=== PATIENT | male | born 1960 | race Caucasian/White ===

== ENCOUNTER → 2016-05-20 | Outpatient (CLI) | payer OTHER ==
[~2016-05-20] MED LIST: GLUCOSAMINE SU500 M2 PO; HEARTBURN TREAT15 MG PO; IBUPROFEN IB200 M1 PO; IBUPROFEN600 MG PO; KEFLEX500 M1 PO; KEFLEX500 MG PO; LISINOPRIL2.5 MG PO; LISINOPRIL20 MG PO; LOMOTIL 0.025 M1 TA1 PO; LUTEIN20 M2 PO; MOTRIN800 MG PO; NKHM; SEPTRA DS 800 M1 TAB PO; XARELTO STARTER20 MG PO; XARELTO20 M1 PO; ZANTAC 150150 MG PO
== END | disposition home or self-care (01) ==
LOC: NM 10:49
DX: D61.818 Other pancytopenia (principal)

== ENCOUNTER → 2016-05-22 | Day surgery (SDC) | payer OTHER ==
--- NOTE | ~2016-05-22 | PROC NOTE ---
[place], [place] PROCEDURE NOTE NAME: CARINA CHRISTIANSON UNIT #: [id number] ROOM: DOCTOR: KIRTI LONDON MD,TRACEY BIRTHDATE: [birth year] DOS: 05/22/2016 Bone marrow aspiration is being done for evaluation of thrombocytopenia and possible hypersplenism. The patient placed in the lateral position. Skin is cleaned with Betadine alcohol. Novocain is injected into the skin until the periosteum, bone marrow aspiration was obtained. Specimen sent to the skilled laborer. AMINATA COTTO MD CM:PROCNOTE:PROCEDURE NOTE [id number] TRACEY LONDON MD
[2016-05-22 07:53] VITALS: BP 159/78
[2016-05-22 09:05] VITALS: BP 129/71
[2016-05-22 09:21] LABS: HEMATOCRIT 39.2 % (42.0-52.0); HEMOGLOBIN 12.1 g/dl (14.0-18.0); MEAN CELL VOLUME 93.8 fl (80.0-94.0); MEAN CORPUSCULAR HGB 28.9 pg (27.0-31.0); MEAN CORPUSCULAR HGB CONC 30.9 g/dl (33.0-37.0); MEAN PLATELET VOLUME 11.7 fl (9.6-12.3); PLATELET COUNT AUTOMATED 76 10*3/uL (130-400); RED BLOOD COUNT 4.18 10*6/uL (4.50-5.90); RED CELL DISTRI WIDTH 13.1 % (0-14.5); WHITE BLOOD COUNT 3.2 10*3/uL (4.8-10.8)
[2016-05-22 10:49] LABS: EOSINOPHIL # 0.2 10*3/uL (0-0.4); EOSINOPHILS 6 % (1-4); LYMPHOCYTE # 1.3 10*3/uL (1.3-4.4); MONOCYTE # 0.3 10*3/uL (0.1-1.0); NEUTROPHIL # 1.4 10*3/uL (2.3-7.9); NEUTROPHILS 44 % (47-73); TOTAL CELLS COUNTED 100 #CELLS
[2016-05-22 10:50] LABS: OVALOCYTES FEW; PLATELET SUFFICIENCY LOW (NORMAL); ROULEAUX SLIGHT
[2016-05-28 19:04] LABS: CELLS ANALYZED 20 (.); CELLS COUNTED 20 (.); CELLS KARYOTYPED 2 (.); CYTOGENETIC RESULT Comment: (.); GTG BAND RESOLUTION ACHIEVED 400 (.); INTERPRETATION Comment: (.)
== END | disposition home or self-care (01) ==
LOC: SDC 07:04
PROVIDERS: Internal Medicine
DX: D61.818 Other pancytopenia (principal); I10 Essential (primary) hypertension; Z83.3 Family history of diabetes mellitus; Z82.3 Family history of stroke; Z82.49 Family history of ischemic heart disease and other diseases of the circulatory system; Z87.891 Personal history of nicotine dependence

== ENCOUNTER → 2016-10-02 | Outpatient (CLI) | payer OTHER ==
[2016-10-02 10:30] LABS: BASO % 0.8 % (0.0-1.0); EOS # 0.2 10*3/uL (0.0-0.4); EOS % 6.5 % (1.0-4.0); HEMATOCRIT 40.7 % (42.0-52.0); HEMOGLOBIN 12.9 g/dl (14.0-18.0); LYMPH # 1.3 10*3/uL (1.3-4.4); LYMPH % 34.9 % (27.0-41.0); MEAN CELL VOLUME 92.1 fl (80.0-94.0); MEAN CORPUSCULAR HGB 29.2 pg (27.0-31.0); MEAN CORPUSCULAR HGB CONC 31.7 g/dl (33.0-37.0); MEAN PLATELET VOLUME 11.6 fl (9.6-12.3); MONO # 0.3 10*3/uL (0.1-1.0); MONO % 7.1 % (3.0-9.0); NEUT # 1.9 10*3/uL (2.3-7.9); NEUT % 50.4 % (47.0-73.0); PLATELET COUNT AUTOMATED 90 10*3/uL (130-400); RED BLOOD COUNT 4.42 10*6/uL (4.50-5.90); RED CELL DISTRI WIDTH 13.2 % (0-14.5); WHITE BLOOD COUNT 3.7 10*3/uL (4.8-10.8)
[2016-10-02 10:58] LABS: ALBUMIN 3.6 gm/dl (3.1-4.5); ALKALINE PHOSPHATASE 96 U/L (45-117); BILIRUBIN, TOTAL 0.8 mg/dl (0.2-1.0); BUN 12 mg/dl (7-24); CARBON DIOXIDE 29 mmol/L (21-32); CHLORIDE 111 mmol/L (98-107); CHOLESTEROL 129 mg/dL (<200); EST GLOM FILT AFRICAN AMERICAN > 60 ml/min; GLUCOSE 104 mg/dL (65-99); HDL CHOLESTEROL 46 mg/dl (40-60); LDL CHOLESTEROL 61 mg/dL (9-159); POTASSIUM 4.2 mmol/L (3.5-5.1); SGOT/AST 43 IU/L (3-35); SGPT/ALT 82 U/L (12-78); SODIUM 146 mmol/L (136-145); TOTAL PROTEIN 7.2 gm/dL (6.4-8.2); TRIGLYCERIDES 108 mg/dl (<150); VLDL CHOLESTEROL 22 mg/dL (6-40)
== END | disposition home or self-care (01) ==
LOC: LAB 09:49
PROVIDERS: Family Medicine
DX: I10 Essential (primary) hypertension (principal)

== ENCOUNTER → 2017-06-19 | Outpatient (CLI) | payer OTHER | END | disposition home or self-care (01) | LOC: CARD 13:48 | DX: R00.2 Palpitations (principal); R06.02 Shortness of breath; R09.89 Other specified symptoms and signs involving the circulatory and respiratory systems ==

== ENCOUNTER 2017-08-18 22:49 | Inpatient (IN) | payer OTHER ==
[~2017-08-18] VITALS: Ht 187.9 cm; Wt 134.5 kg
--- NOTE | ~2017-08-18 | CON ---
[place], [place] REPORT OF CONSULTATION NAME: [facility]SON [facility] [id number] UNIT #: [id number] ROOM: 520 DOCTOR: AZRA LOVE MD BIRTHDATE: [birth year] DOS: 08/19/2017 REASON FOR CONSULTATION: Chest pain. HISTORY OF PRESENT ILLNESS: The patient is a 57-year-old man who has risk factors of hypertension, prediabetes, obesity and a family history of coronary artery disease. He has no previously documented history of coronary disease and in fact did have a stress test on 07/12/2015 that showed normal left ventricular size and perfusion with an ejection fraction of 75%. The study was felt to be low risk. He was well until about a week ago. He broke up with his girlfriend and stated that shortly after that he began having sharp pains in his lower chest, which radiated to his right side and right back. These were associated with feeling hot and sweaty. Pains would last variable amounts of time. Yesterday pains got worse and so he came to the Emergency Room. His initial electrocardiogram showed minimal inferior ST segment depressions and troponin levels have been normal. We were asked to assess the cause of his chest pain. Currently, the patient is pain free and believes that he can walk for an exercise stress test. PAST MEDICAL HISTORY: Includes the followin. Essential hypertension. 2. Morbid obesity. 3. Prediabetes. 4. Stasis dermatitis of the legs. 5. 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 6. Family history of heart disease in several male members of his family. His father at age 59 from a heart attack. MEDICATIONS: Prior to admission, ibuprofen 600 mg daily p.r.n., Fioricet 1 capsule b.i.d. p.r.n. migraines, lisinopril 20 mg daily, lansoprazole 15 mg daily and Lutein 20 mg daily. ALLERGIES: The patient has no known drug allergies. FAMILY HISTORY: Positive for multiple family members having heart disease. REVIEW OF SYSTEMS: The patient denies diplopia or loss of vision. He denies focal weakness. He denies lightheadedness or syncope. He did have the chest pain as noted above. He denies nausea or vomiting. He denies hemoptysis or hematemesis. He denies fevers, chills, sweats or recent weight change. He does have chronic stasis changes on his legs, but no other skin rashes. He denies any change in bowel or bladder habits. He denies blood in his stools or urine. He denies heat or cold intolerance and denies polyuria or polydipsia. The remainder of the review of systems is negative except as noted above. SOCIAL HISTORY: The patient does not smoke or consume alcohol. He recently [place], [place] REPORT OF CONSULTATION NAME: CARINA CHRISTIANSON UNIT #: [id number] ROOM: [facility] DOCTOR: AZRA LOVE MD BIRTHDATE: [birth year] broke up with a woman that he had been seeing and feels very upset about that. PHYSICAL EXAMINATION: GENERAL: The patient is an overweight white male who is awake, alert and oriented. VITAL SIGNS: Pulse is 64 and regular, blood pressure is 128/62. He is afebrile. He weighs 134.5 kg and has a body mass index of 38.1. HEENT: Normocephalic and atraumatic. Extraocular muscles are intact. Sclerae are clear. Pupils equal, round and react to light. The oral mucosa is moist. Tongue is midline. NECK: Supple. He has no jugular distention. Carotids are full. I heard no bruits. He had no neck or supraclavicular masses. No thyromegaly. LUNGS: Respirations are unlabored. His chest is clear to auscultation and percussion. He has no presacral edema or chest wall tenderness. CARDIOVASCULAR: His heart has a regular rhythm. He has no murmurs, rubs or gallops. I could reproduce some of his pains by pressing on his lower sternum. The PMI is not displaced. There is no precordial heave, lift or thrill. ABDOMEN: Obese, but otherwise benign, without masses, organomegaly, bruits or tenderness. EXTREMITIES: Show stasis changes of the shins bilaterally. Pedal pulses are palpable in the feet. LABORATORY DATA: I reviewed his electrocardiogram, which shows sinus rhythm with minimal ST segment depression in the inferior leads. Serial troponin levels are normal. Hemoglobin is 12.3 with hematocrit 38.5. There 5500 white cells and 84,000 platelets present. Sodium is 142, potassium 3.5, chloride 109, CO2 of 26, BUN 14, creatinine 1.16. Hemoglobin A1c 5.6. Total cholesterol 109, LDL 58, HDL 35, triglycerides 82. IMPRESSION: 1. Atypical chest pain. Thus far, the patient shows no objective findings to suggest an acute coronary syndrome. 2. Morbid obesity. 3. Probable metabolic syndrome. 4. History of prediabetes. 5. Essential hypertension. 6. Thrombocytopenia. PLAN: We will proceed with an exercise stress test. Further recommendations depend upon the results of the stress test. Certainly, he should try to lose weight and maintain a healthy lifestyle no matter what we find given his other risk factors. [facility] and I thank the hospitalist physicians for asking our advice regarding the patient's care. [place], [place] REPORT OF CONSULTATION NAME: CARINA CHRISTIANSON UNIT #: [id number] ROOM: [facility] DOCTOR: AZRA LOVE MD BIRTHDATE: [birth year] AZRA LOVE MD CM:CONSTR:REPORT OF CONSULTATION 0941 08/19/17 1000 interface
--- NOTE | ~2017-08-18 | PR ---
[place], [place] PROGRESS NOTE NAME: CARINA CHRISTIANSON [facility] #: [id number] UNIT #: [id number] ROOM: 520 DOCTOR: AZRA LOVE MD BIRTHDATE: [birth year] DOS: 08/20/2017 SUBJECTIVE: The patient was seen at his bedside today 08/20/2017 for followup of his atypical chest pain. This seemed to be brought on by stress over a recent breakup with his girlfriend. He ruled out for an acute myocardial infarction and a stress test yesterday was normal. PHYSICAL EXAMINATION: VITAL SIGNS: Today, his pulse is 66 and regular, blood pressure 130/72. He is afebrile. He weighs 134.5 kg and has a body mass index of 38.1. HEENT: Normocephalic and atraumatic. NECK: Supple. He has no jugular distention. LUNGS: Respirations are unlabored. His chest is clear. HEART: Has a regular rhythm. He has a fourth heart sound, but no third heart sound. He does have chronic stasis changes on his ankles. IMPRESSION: 1. Atypical chest pain. The patient showed no objective findings to suggest acute coronary syndrome or ischemic heart disease. 2. Morbid obesity. 3. Metabolic syndrome. 4. Prediabetes. 5. Essential hypertension. 6. Thrombocytopenia. No other cardiac workup is planned at this time. He should make healthy lifestyle choices and probably should be on a statin if he can tolerate it from his other medical problems. We will remain available to see him as needed and I thank the hospitalist physicians for asking our advice regarding his care. AZRA LOVE MD CM:PNTRANS [id number] AZRA LOVE MD 08/20/17 1546 interface
[2017-08-18 22:53] VITALS: BP 117/63
[2017-08-18] MEDS ORDERED: LANSOPRAZOLE15 MG PO (22:56)
[2017-08-18] MEDS ORDERED: FIORICET 50-301 EACH PO (22:57)
[2017-08-18 23:33] LABS: BASO % 0.5 % (0.0-1.0); EOS # 0.2 10*3/uL (0.0-0.4); EOS % 2.3 % (1.0-4.0); HEMATOCRIT 42.7 % (42.0-52.0); HEMOGLOBIN 13.8 g/dl (14.0-18.0); LYMPH # 2.1 10*3/uL (1.3-4.4); LYMPH % 27.5 % (27.0-41.0); MEAN CELL VOLUME 90.7 fl (80.0-94.0); MEAN CORPUSCULAR HGB 29.3 pg (27.0-31.0); MEAN CORPUSCULAR HGB CONC 32.3 g/dl (33.0-37.0); MEAN PLATELET VOLUME 11.3 fl (9.6-12.3); MONO # 0.9 10*3/uL (0.1-1.0); MONO % 11.3 % (3.0-9.0); NEUT # 4.5 10*3/uL (2.3-7.9); NEUT % 58.1 % (47.0-73.0); PLATELET COUNT AUTOMATED 109 10*3/uL (130-400); RED BLOOD COUNT 4.71 10*6/uL (4.50-5.90); RED CELL DISTRI WIDTH 13.4 % (0-14.5); WHITE BLOOD COUNT 7.8 10*3/uL (4.8-10.8)
[2017-08-18 23:46] LABS: ACT PARTIAL THROMBO TIME 23.1 SECONDS (20.8-31.5); INTERNATIONAL NORM RATIO 1.2 (2.0-3.5)
[2017-08-18 23:50] LABS: ALBUMIN 4.1 gm/dl (3.1-4.5); ALKALINE PHOSPHATASE 124 U/L (45-117); BUN 14 mg/dl (7-24); CHLORIDE 105 mmol/L (98-107); CREATININE 1.64 mg/dL (0.70-1.30); POTASSIUM 3.7 mmol/L (3.5-5.1); SGOT/AST 64 IU/L (3-35); SGPT/ALT 115 U/L (12-78); SODIUM 140 mmol/L (136-145); TOTAL PROTEIN 7.9 gm/dL (6.4-8.2)
[2017-08-18 23:53] VITALS: BP 122/56
[2017-08-18 23:54] LABS: TROPONIN I < 0.015 ng/ml (<0.045)
[2017-08-19 00:53] VITALS: BP 135/60
[2017-08-19 05:53] LABS: ALBUMIN 3.5 gm/dl (3.1-4.5); BUN 14 mg/dl (7-24); CHLORIDE 109 mmol/L (98-107); CHOLESTEROL 109 mg/dL (<200); CREATININE 1.16 mg/dL (0.70-1.30); HDL CHOLESTEROL 35 mg/dl (40-60); LDL CHOLESTEROL 58 mg/dL (9-159); PHOSPHOROUS 4.3 mg/dL (2.5-4.9); POTASSIUM 3.5 mmol/L (3.5-5.1); SGOT/AST 51 IU/L (3-35); SGPT/ALT 94 U/L (12-78); SODIUM 142 mmol/L (136-145); TOTAL PROTEIN 6.8 gm/dL (6.4-8.2); TRIGLYCERIDES 82 mg/dl (<150); VLDL CHOLESTEROL 16 mg/dL (6-40)
[2017-08-19 05:59] LABS: ALKALINE PHOSPHATASE 107 U/L (45-117)
[2017-08-19 06:01] LABS: BASO # 0.1 10*3/uL (0.0-0.1); BASO % 0.9 % (0.0-1.0); EOS # 0.2 10*3/uL (0.0-0.4); EOS % 3.3 % (1.0-4.0); HEMATOCRIT 38.5 % (42.0-52.0); HEMOGLOBIN 12.3 g/dl (14.0-18.0); LYMPH # 2.2 10*3/uL (1.3-4.4); LYMPH % 39.4 % (27.0-41.0); MEAN CELL VOLUME 91.2 fl (80.0-94.0); MEAN CORPUSCULAR HGB 29.1 pg (27.0-31.0); MEAN CORPUSCULAR HGB CONC 31.9 g/dl (33.0-37.0); MEAN PLATELET VOLUME 11.9 fl (9.6-12.3); MONO # 0.4 10*3/uL (0.1-1.0); NEUT # 2.7 10*3/uL (2.3-7.9); NEUT % 48.2 % (47.0-73.0); PLATELET COUNT AUTOMATED 84 10*3/uL (130-400); RED BLOOD COUNT 4.22 10*6/uL (4.50-5.90); RED CELL DISTRI WIDTH 13.6 % (0-14.5); WHITE BLOOD COUNT 5.5 10*3/uL (4.8-10.8)
[2017-08-19 06:14] LABS: ACT PARTIAL THROMBO TIME 23.3 SECONDS (20.8-31.5); INTERNATIONAL NORM RATIO 1.2 (2.0-3.5)
[2017-08-19 07:11] LABS: VITAMIN D, 25-HYDROXY 20.8 ng/mL (30-100)
[2017-08-19 08:00] VITALS: BP 128/62
[2017-08-19 12:00] VITALS: BP 128/62
[2017-08-19 16:00] VITALS: BP 133/56
[2017-08-19 20:00] VITALS: BP 103/60; BP 139/80
[2017-08-20] VITALS: BP 137/56; BP 92/52
[2017-08-20 08:00] VITALS: BP 132/60
[2017-08-20 08:48] LABS: IRON 43 ug/dL (65-175); TOTAL IRON BINDING CAPACITY 247 ug/dl (250-450)
[2017-08-20 12:00] VITALS: BP 130/72
[2017-08-20] MEDS ORDERED: SIMVASTATIN10 MG PO (15:56)
[2017-08-20] MEDS ORDERED: VITAMIN D-32000 UNIT PO (15:56)
[2017-08-20 16:00] VITALS: BP 110/69
== END 2017-08-20 17:03 | disposition home or self-care (01) | DRG 683 ==
LOC: ED 22:49 → EDHOLD 08-19 00:04 → 5E 08-19 00:04
PROVIDERS: Family Medicine; Internal Medicine; Student in an Organized Health Care Education/Training Program
PROC: 4A02XM4 Measurement of Cardiac Total Activity, External Approach (ICD-10-PCS; principal; 2017-08-19)
PROC: 3E033HZ Introduction of Radioactive Substance into Peripheral Vein, Percutaneous Approach (ICD-10-PCS; 2017-08-19)
DX: N17.0 Acute kidney failure with tubular necrosis (principal); D68.9 Coagulation defect, unspecified; D69.6 Thrombocytopenia, unspecified; E66.01 Morbid (severe) obesity due to excess calories; E83.41 Hypermagnesemia; Z68.41 Body mass index [BMI] 40.0-44.9, adult; K21.9 Gastro-esophageal reflux disease without esophagitis; I87.2 Venous insufficiency (chronic) (peripheral); R07.89 Other chest pain; E88.81 Metabolic syndrome and other insulin resistance; K76.0 Fatty (change of) liver, not elsewhere classified; I51.7 Cardiomegaly; F41.9 Anxiety disorder, unspecified; I10 Essential (primary) hypertension; R73.9 Hyperglycemia, unspecified; R74.0 Nonspecific elevation of levels of transaminase and lactic acid dehydrogenase [LDH]; R16.1 Splenomegaly, not elsewhere classified; F32.9 Major depressive disorder, single episode, unspecified; B35.1 Tinea unguium; Z82.49 Family history of ischemic heart disease and other diseases of the circulatory system; Z86.718 Personal history of other venous thrombosis and embolism

== ENCOUNTER 2017-12-20 22:12 | Emergency (ER) | payer OTHER ==
[~2017-12-20] VITALS: Ht 185.4 cm; Wt 135.2 kg
[~2017-12-20 22:12] MED LIST changes: +FIORICET 50-301 EACH PO; +LANSOPRAZOLE15 MG PO; +SIMVASTATIN10 MG PO; +VITAMIN D-32000 UNIT PO
[2017-12-20 22:41] LABS: BILIRUBIN NEGATIVE (NEGATIVE); BLOOD 3+ (NEGATIVE); CLARITY SL CLOUDY (CLEAR); COLOR YELLOW (YELLOW); GLUCOSE NEGATIVE (NEGATIVE); KETONE NEGATIVE (NEGATIVE); LEUKO ESTERASE NEGATIVE (NEGATIVE); NITRITE NEGATIVE (NEGATIVE); PH 6.5 (5.0-9.0); UROBILINOGEN 0.2 E.U./dl (0.2-1.0)
[2017-12-20 22:54] LABS: BACTERIA 2+; MUCOUS 1+; RBC TNTC rbc/hpf (0-2)
[2017-12-20 23:20] LABS: BASO % 0.8 % (0.0-1.0); EOS # 0.1 10*3/uL (0.0-0.4); EOS % 3.5 % (1.0-4.0); HEMATOCRIT 37.9 % (42.0-52.0); HEMOGLOBIN 11.7 g/dl (14.0-18.0); LYMPH # 0.7 10*3/uL (1.3-4.4); LYMPH % 17.3 % (27.0-41.0); MEAN CELL VOLUME 94.5 fl (80.0-94.0); MEAN CORPUSCULAR HGB 29.2 pg (27.0-31.0); MEAN CORPUSCULAR HGB CONC 30.9 g/dl (33.0-37.0); MEAN PLATELET VOLUME 12.4 fl (9.6-12.3); MONO # 0.2 10*3/uL (0.1-1.0); NEUT # 2.8 10*3/uL (2.3-7.9); NEUT % 74.1 % (47.0-73.0); PLATELET COUNT AUTOMATED 68 10*3/uL (130-400); RED BLOOD COUNT 4.01 10*6/uL (4.50-5.90); RED CELL DISTRI WIDTH 13.2 % (0-14.5); WHITE BLOOD COUNT 3.8 10*3/uL (4.8-10.8)
[2017-12-20 23:37] LABS: ALBUMIN 3.9 gm/dl (3.1-4.5); ALKALINE PHOSPHATASE 122 U/L (45-117); BUN 17 mg/dl (7-24); CHLORIDE 108 mmol/L (98-107); CREATININE 1.18 mg/dL (0.70-1.30); LIPASE 169 U/L (73-393); POTASSIUM 4.4 mmol/L (3.5-5.1); SGOT/AST 36 IU/L (3-35); SGPT/ALT 59 U/L (12-78); SODIUM 143 mmol/L (136-145); TOTAL PROTEIN 7.5 gm/dL (6.4-8.2)
[2017-12-21] MEDS ORDERED: ULTRAM50 MG PO (02:06)
[2017-12-25] MEDS ORDERED: KETOROLAC10 MG PO (02:39)
== END 2017-12-21 02:12 | disposition home or self-care (01) ==
LOC: ED 22:12
PROVIDERS: Emergency Medicine
DX: N20.0 Calculus of kidney (principal); K21.9 Gastro-esophageal reflux disease without esophagitis; I10 Essential (primary) hypertension; E66.9 Obesity, unspecified; Z90.49 Acquired absence of other specified parts of digestive tract; Z68.30 Body mass index [BMI] 30.0-30.9, adult; Z79.899 Other long term (current) drug therapy

== ENCOUNTER 2018-02-10 23:25 | Emergency (ER) | payer OTHER ==
[~2018-02-10] VITALS: Ht 185.4 cm; Wt 136.1 kg
[~2018-02-10 23:25] MED LIST changes: +KETOROLAC10 MG PO; +ULTRAM50 MG PO
[2018-02-11 00:05] LABS: BASO % 1.1 % (0.0-1.0); EOS # 0.3 10*3/uL (0.0-0.4); EOS % 6.9 % (1.0-4.0); HEMATOCRIT 36.2 % (42.0-52.0); HEMOGLOBIN 11.5 g/dl (14.0-18.0); LYMPH # 1.3 10*3/uL (1.3-4.4); LYMPH % 35.7 % (27.0-41.0); MEAN CELL VOLUME 92.3 fl (80.0-94.0); MEAN CORPUSCULAR HGB 29.3 pg (27.0-31.0); MEAN CORPUSCULAR HGB CONC 31.8 g/dl (33.0-37.0); MEAN PLATELET VOLUME 11.9 fl (9.6-12.3); MONO # 0.2 10*3/uL (0.1-1.0); MONO % 5.2 % (3.0-9.0); NEUT # 1.9 10*3/uL (2.3-7.9); NEUT % 50.8 % (47.0-73.0); PLATELET COUNT AUTOMATED 81 10*3/uL (130-400); RED BLOOD COUNT 3.92 10*6/uL (4.50-5.90); RED CELL DISTRI WIDTH 13.3 % (0-14.5); WHITE BLOOD COUNT 3.6 10*3/uL (4.8-10.8)
[2018-02-11 00:21] LABS: ALBUMIN 3.7 gm/dl (3.1-4.5); ALKALINE PHOSPHATASE 134 U/L (45-117); BUN 15 mg/dl (7-24); CHLORIDE 108 mmol/L (98-107); CREATININE 1.11 mg/dL (0.70-1.30); POTASSIUM 4.6 mmol/L (3.5-5.1); SGOT/AST 59 IU/L (3-35); SGPT/ALT 67 U/L (12-78); SODIUM 142 mmol/L (136-145); TOTAL PROTEIN 7.4 gm/dL (6.4-8.2)
[2018-02-11 00:25] LABS: INTERNATIONAL NORM RATIO 1.1 (2.0-3.5)
[2018-02-11] MEDS ORDERED: XARELTO1 EACH PO (08:17)
== END 2018-02-11 08:28 | disposition home or self-care (01) ==
LOC: ED 23:25
PROVIDERS: Emergency Medicine
DX: I82.431 Acute embolism and thrombosis of right popliteal vein (principal); I82.441 Acute embolism and thrombosis of right tibial vein; I82.532 Chronic embolism and thrombosis of left popliteal vein; I82.542 Chronic embolism and thrombosis of left tibial vein; K21.9 Gastro-esophageal reflux disease without esophagitis; I10 Essential (primary) hypertension; E66.9 Obesity, unspecified; Z79.899 Other long term (current) drug therapy; Z87.442 Personal history of urinary calculi; Z68.30 Body mass index [BMI] 30.0-30.9, adult; Z90.49 Acquired absence of other specified parts of digestive tract

== ENCOUNTER → 2018-04-01 | Outpatient (CLI) | payer OTHER ==
[~2018-04-01] MED LIST changes: +XARELTO1 EACH PO
== END | disposition home or self-care (01) ==
LOC: CARD 08:23
DX: I34.0 Nonrheumatic mitral (valve) insufficiency (principal); I82.403 Acute embolism and thrombosis of unspecified deep veins of lower extremity, bilateral

== ENCOUNTER → 2018-05-27 | Outpatient (CLI) | payer OTHER ==
[~2018-05-27] MED LIST changes: +EUCERIN CREME120 GM T; +K-TAB20 MEQ PO; +LASIX40 MG PO
[2018-05-27 14:44] LABS: BASO % 1.1 % (0.0-1.0); EOS # 0.2 10*3/uL (0.0-0.4); EOS % 6.1 % (1.0-4.0); HEMATOCRIT 36.3 % (42.0-52.0); HEMOGLOBIN 11.4 g/dl (14.0-18.0); LYMPH % 36.8 % (27.0-41.0); MEAN CELL VOLUME 92.6 fl (80.0-94.0); MEAN CORPUSCULAR HGB 29.1 pg (27.0-31.0); MEAN CORPUSCULAR HGB CONC 31.4 g/dl (33.0-37.0); MEAN PLATELET VOLUME 11.9 fl (9.6-12.3); MONO # 0.2 10*3/uL (0.1-1.0); MONO % 6.1 % (3.0-9.0); NEUT # 1.3 10*3/uL (2.3-7.9); NEUT % 49.5 % (47.0-73.0); PLATELET COUNT AUTOMATED 64 10*3/uL (130-400); RED BLOOD COUNT 3.92 10*6/uL (4.50-5.90); RED CELL DISTRI WIDTH 13.6 % (0-14.5); WHITE BLOOD COUNT 2.6 10*3/uL (4.8-10.8)
[2018-05-27 15:16] LABS: ALBUMIN 3.7 gm/dl (3.1-4.5); ALKALINE PHOSPHATASE 126 U/L (45-117); BUN 14 mg/dl (7-24); CHLORIDE 110 mmol/L (98-107); CHOLESTEROL 135 mg/dL (<200); CREATININE 0.84 mg/dL (0.70-1.30); HDL CHOLESTEROL 44 mg/dl (40-60); LDL CHOLESTEROL 72 mg/dL (9-159); POTASSIUM 4.1 mmol/L (3.5-5.1); SGOT/AST 48 IU/L (3-35); SGPT/ALT 67 U/L (12-78); SODIUM 144 mmol/L (136-145); TOTAL PROTEIN 7.3 gm/dL (6.4-8.2); TRIGLYCERIDES 97 mg/dl (<150); VLDL CHOLESTEROL 19 mg/dL (6-40)
[2018-05-27 15:19] LABS: INTERNATIONAL NORM RATIO 1.3 (2.0-3.5)
[2018-05-28 14:09] LABS: ANTICARDIOLIPIN AB, IGG, QN <9 GPL U/mL (0-14); ANTICARDIOLIPIN AB, IGM, QN <9 MPL U/mL (0-12); CARDIOLIPIN AB IGA 161836 <9 APL U/mL (0-11)
[2018-05-29 06:14] LABS: ANTIPHOSPHATIDYLSERINE IGM 6 MPS IgM (0-25)
== END | disposition home or self-care (01) ==
LOC: LAB 13:14
PROVIDERS: Family Medicine
DX: I82.403 Acute embolism and thrombosis of unspecified deep veins of lower extremity, bilateral (principal); Z79.899 Other long term (current) drug therapy

== ENCOUNTER → 2018-06-05 | Outpatient (CLI) | payer OTHER ==
[2018-06-07 15:08] LABS: ACTIVATED PROTEIN C 117762 2.9 ratio (2.2-3.5)
== END | disposition home or self-care (01) ==
LOC: LAB 02:51
PROVIDERS: Family Medicine
DX: I82.409 Acute embolism and thrombosis of unspecified deep veins of unspecified lower extremity (principal)

== ENCOUNTER 2018-06-07 00:38 | Emergency (ER) | payer OTHER ==
[~2018-06-07] VITALS: Ht 187.9 cm; Wt 133.8 kg
--- NOTE | ~2018-06-07 | EKG ---
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
[~2018-06-07 00:38] MED LIST changes: -EUCERIN CREME120 GM T; -K-TAB20 MEQ PO; -LASIX40 MG PO
[2018-06-07 01:15] LABS: EOS # 0.2 10*3/uL (0.0-0.4); EOS % 5.9 % (1.0-4.0); HEMATOCRIT 35.1 % (42.0-52.0); HEMOGLOBIN 11.1 g/dl (14.0-18.0); LYMPH # 1.2 10*3/uL (1.3-4.4); LYMPH % 39.9 % (27.0-41.0); MEAN CELL VOLUME 91.9 fl (80.0-94.0); MEAN CORPUSCULAR HGB 29.1 pg (27.0-31.0); MEAN CORPUSCULAR HGB CONC 31.6 g/dl (33.0-37.0); MEAN PLATELET VOLUME 12.4 fl (9.6-12.3); MONO # 0.2 10*3/uL (0.1-1.0); MONO % 6.3 % (3.0-9.0); NEUT # 1.3 10*3/uL (2.3-7.9); NEUT % 46.6 % (47.0-73.0); PLATELET COUNT AUTOMATED 61 10*3/uL (130-400); RED BLOOD COUNT 3.82 10*6/uL (4.50-5.90); RED CELL DISTRI WIDTH 13.8 % (0-14.5); WHITE BLOOD COUNT 2.9 10*3/uL (4.8-10.8)
[2018-06-07 01:27] LABS: ACT PARTIAL THROMBO TIME 27.7 SECONDS (20.8-31.5); INTERNATIONAL NORM RATIO 1.2 (2.0-3.5)
[2018-06-07 01:32] LABS: ALBUMIN 3.4 gm/dl (3.1-4.5); ALKALINE PHOSPHATASE 116 U/L (45-117); BUN 14 mg/dl (7-24); CHLORIDE 108 mmol/L (98-107); LIPASE 232 U/L (73-393); POTASSIUM 3.6 mmol/L (3.5-5.1); SGOT/AST 35 IU/L (3-35); SGPT/ALT 53 U/L (12-78); SODIUM 141 mmol/L (136-145)
[2018-06-07 01:33] LABS: TROPONIN I < 0.015 ng/ml (<0.045)
[2018-06-07] MEDS ORDERED: K-TAB20 MEQ PO (03:02)
[2018-06-07] MEDS ORDERED: LASIX40 MG PO (03:02)
[2018-06-07] MEDS ORDERED: EUCERIN CREME120 GM T (03:05)
== END 2018-06-07 03:35 | disposition home or self-care (01) ==
LOC: ED 00:38
PROVIDERS: Emergency Medicine Emergency Medical Services
DX: I87.2 Venous insufficiency (chronic) (peripheral) (principal); K21.9 Gastro-esophageal reflux disease without esophagitis; E66.9 Obesity, unspecified; I50.9 Heart failure, unspecified; I11.0 Hypertensive heart disease with heart failure; Z79.899 Other long term (current) drug therapy; Z86.718 Personal history of other venous thrombosis and embolism; Z68.39 Body mass index [BMI] 39.0-39.9, adult; Z87.440 Personal history of urinary (tract) infections; Z87.442 Personal history of urinary calculi

== ENCOUNTER → 2018-11-25 | Outpatient (CLI) | payer OTHER ==
[~2018-11-25] MED LIST changes: +DOXYCYCLINE MO100 M1 PO; +EUCERIN CREME120 GM T; +K-TAB20 MEQ PO; +LASIX40 MG PO
== END | disposition home or self-care (01) ==
LOC: ORTHO 00:43
DX: M25.562 Pain in left knee (principal); M79.605 Pain in left leg

== ENCOUNTER → 2018-12-25 | Outpatient (CLI) | payer OTHER | END | disposition home or self-care (01) | LOC: MRI 08:48 | DX: S83.232D Complex tear of medial meniscus, current injury, left knee, subsequent encounter (principal); X58.XXXD Exposure to other specified factors, subsequent encounter ==

== ENCOUNTER 2019-01-16 22:58 | Emergency (ER) | payer OTHER ==
[~2019-01-16] VITALS: Ht 187.9 cm; Wt 135.2 kg
== END 2019-01-16 23:52 | disposition home or self-care (01) ==
LOC: ED 22:58
DX: S81.801A Unspecified open wound, right lower leg, initial encounter (principal); Z79.899 Other long term (current) drug therapy; W22.8XXA Striking against or struck by other objects, initial encounter; Y93.89 Activity, other specified; Y92.89 Other specified places as the place of occurrence of the external cause; Y99.8 Other external cause status

== ENCOUNTER → 2019-01-21 | Outpatient (CLI) | payer OTHER | END | disposition home or self-care (01) | LOC: US 11:26 | DX: R60.0 Localized edema (principal) ==

== ENCOUNTER 2019-02-02 10:57 | Emergency (ER) | payer OTHER ==
[~2019-02-02] VITALS: Ht 187.9 cm; Wt 136.1 kg
--- NOTE | ~2019-02-02 | EKG ---
[place], [place] ELECTROCARDIOGRAM REPORT NAME: CARINA CHRISTIANSON UNIT #: [id number] ROOM: DOCTOR: EPIPHANY DRAFT REPORT BIRTHDATE: [address] [facility] Test Date: 2019-02-02 Test Time: 11:34:43 Pat Name: CARINA CHRISTIANSON Department: Room: Gender: M Environmental Maintenance Worker: : 1960 Requested By: AMBROCIO JARAMILLO Order Number: [id number] Reading MD: Otto Watson MD Measurements Intervals [place] Rate: 65 P: 52 UT: 179 QRS: 52 QRSD: 86 T: 15 QT: 399 QTc: 415 Interpretive Statements Sinus rhythm Abnormal R-wave progression, early transition Compared to ECG 06/07/2018 01:18:57 No significant changes Electronically Signed On 02-03-2019 14:10:52 PDT by Otto Watson MD CM:EKGRPT:ELECTROCARDIOGRAM REPORT [id number] 1410 AMBROCIO TIJERINAANY DRAFT REPORT AMBROCIO JARAMILLO
[2019-02-02 12:16] LABS: HEMATOCRIT 35.5 % (42.0-52.0); HEMOGLOBIN 10.8 g/dl (14.0-18.0); MEAN CELL VOLUME 90.8 fl (80.0-94.0); MEAN CORPUSCULAR HGB 27.6 pg (27.0-31.0); MEAN CORPUSCULAR HGB CONC 30.4 g/dl (33.0-37.0); MEAN PLATELET VOLUME 12.7 fl (9.6-12.3); PLATELET COUNT AUTOMATED 47 10*3/uL (130-400); RED BLOOD COUNT 3.91 10*6/uL (4.50-5.90); RED CELL DISTRI WIDTH 14.1 % (0-14.5)
[2019-02-02 12:26] LABS: BILIRUBIN NEGATIVE (NEGATIVE); BLOOD NEGATIVE (NEGATIVE); CLARITY SL CLOUDY (CLEAR); COLOR YELLOW (YELLOW); GLUCOSE NEGATIVE (NEGATIVE); KETONE NEGATIVE (NEGATIVE); LEUKO ESTERASE NEGATIVE (NEGATIVE); NITRITE NEGATIVE (NEGATIVE); UROBILINOGEN 0.2 E.U./dl (0.2-1.0)
[2019-02-02 12:29] LABS: ACT PARTIAL THROMBO TIME 32.9 SECONDS (20.0-32.1); INTERNATIONAL NORM RATIO 1.2 (2.0-3.5)
[2019-02-02 12:30] LABS: ALBUMIN 3.3 gm/dl (3.1-4.5); ALKALINE PHOSPHATASE 109 U/L (45-117); BUN 9 mg/dl (7-24); CHLORIDE 110 mmol/L (98-107); CREATININE 0.72 mg/dL (0.70-1.30); POTASSIUM 4.1 mmol/L (3.5-5.1); SGOT/AST 44 IU/L (3-35); SGPT/ALT 63 U/L (12-78); SODIUM 142 mmol/L (136-145); TOTAL PROTEIN 6.8 gm/dL (6.4-8.2)
[2019-02-02 12:35] LABS: BASOPHILS 1 % (0-1); OVALOCYTES FEW; PLATELET SUFFICIENCY LOW (NORMAL); TOTAL CELLS COUNTED 100 #CELLS
[2019-02-02 12:37] LABS: WHITE BLOOD COUNT 1.7 10*3/uL (4.8-10.8)
[2019-02-02 12:38] LABS: MUCOUS 1+; RBC 0-2 rbc/hpf (0-2)
[2019-02-02 12:40] LABS: TROPONIN I < 0.015 ng/ml (<0.045)
== END 2019-02-02 14:02 | disposition home or self-care (01) ==
LOC: ED 10:57
PROVIDERS: Hospitalist
DX: R42 Dizziness and giddiness (principal); R55 Syncope and collapse; D61.818 Other pancytopenia; K21.9 Gastro-esophageal reflux disease without esophagitis; I10 Essential (primary) hypertension; E66.9 Obesity, unspecified; E11.9 Type 2 diabetes mellitus without complications; Z68.39 Body mass index [BMI] 39.0-39.9, adult; Z87.442 Personal history of urinary calculi; Z90.49 Acquired absence of other specified parts of digestive tract; Z86.718 Personal history of other venous thrombosis and embolism; Z79.899 Other long term (current) drug therapy

== ENCOUNTER 2019-12-22 14:14 | Emergency (ER) | payer OTHER ==
[~2019-12-22] VITALS: Ht 187.9 cm; Wt 136.1 kg
[2019-12-22] MEDS ORDERED: VIBRAMYCIN100 MG PO (16:10)
== END 2019-12-22 16:24 | disposition home or self-care (01) ==
LOC: ED 14:14
DX: L08.89 Other specified local infections of the skin and subcutaneous tissue (principal); I10 Essential (primary) hypertension; G43.909 Migraine, unspecified, not intractable, without status migrainosus; Z79.899 Other long term (current) drug therapy

== ENCOUNTER 2020-08-16 20:31 | Emergency (ER) | payer OTHER ==
[~2020-08-16 20:31] MED LIST changes: +VIBRAMYCIN100 MG PO
[2020-08-16] MEDS ORDERED: NAPROXEN250 MG PO (21:45)
[2020-08-16] MEDS ORDERED: ROBAXIN-750750 MG PO (21:45)
== END 2020-08-16 22:00 | disposition home or self-care (01) ==
LOC: ED 20:31
DX: S39.012A Strain of muscle, fascia and tendon of lower back, initial encounter (principal); I10 Essential (primary) hypertension; E11.9 Type 2 diabetes mellitus without complications; Z79.899 Other long term (current) drug therapy; Z90.49 Acquired absence of other specified parts of digestive tract; Z98.890 Other specified postprocedural states; X58.XXXA Exposure to other specified factors, initial encounter; Y93.89 Activity, other specified; Y92.89 Other specified places as the place of occurrence of the external cause; Y99.8 Other external cause status

== ENCOUNTER → 2020-11-06 | Outpatient (CLI) | payer OTHER ==
[~2020-11-06] MED LIST changes: +NAPROXEN250 MG PO; +ROBAXIN-750750 MG PO
== END | disposition home or self-care (01) ==
LOC: US 16:55
PROVIDERS: ATTEND Nurse Practitioner Primary Care
DX: I82.442 Acute embolism and thrombosis of left tibial vein (principal)

== ENCOUNTER → 2020-11-22 | Outpatient (CLI) | payer OTHER | END | disposition home or self-care (01) | LOC: CARD 10:30 | PROVIDERS: ATTEND Nurse Practitioner Primary Care | DX: I51.7 Cardiomegaly (principal); R01.1 Cardiac murmur, unspecified ==

== ENCOUNTER → 2020-12-01 | Outpatient (CLI) | payer OTHER | END | disposition home or self-care (01) | LOC: CT 12:46 | PROVIDERS: ATTEND Internal Medicine Hematology & Oncology | DX: K74.69 Other cirrhosis of liver (principal); K76.89 Other specified diseases of liver; D61.818 Other pancytopenia ==

== ENCOUNTER → 2021-03-05 | Outpatient (CLI) | payer OTHER | END | disposition home or self-care (01) | LOC: US 08:30 | PROVIDERS: ATTEND Nurse Practitioner Primary Care | DX: I73.89 Other specified peripheral vascular diseases (principal) ==

== ENCOUNTER 2021-04-10 02:49 | Emergency (ER) | payer OTHER ==
[~2021-04-10] VITALS: Ht 182.8 cm; Wt 158.8 kg
[2021-04-10] MEDS ORDERED: [UNRECOGNIZED DRUG - REMARK] PO (05:58)
== END 2021-04-10 06:00 | disposition home or self-care (01) ==
LOC: ED 02:49
DX: R21 Rash and other nonspecific skin eruption (principal); K21.9 Gastro-esophageal reflux disease without esophagitis; I10 Essential (primary) hypertension; Z79.899 Other long term (current) drug therapy

== ENCOUNTER 2022-04-10 23:29 | Emergency (ER) | payer OTHER ==
[~2022-04-10] VITALS: Ht 185.4 cm; Wt 158.8 kg
[~2022-04-10 23:29] MED LIST changes: +[UNRECOGNIZED DRUG - REMARK] PO
[2022-04-10] MEDS ORDERED: JANUMET XR 50-1 EACH PO (23:53)
[2022-04-10] MEDS ORDERED: VITAMIN D31250 MCG PO (23:53)
[2022-04-10] MEDS ORDERED: FENOFIBRATE PO (23:54)
[2022-04-10] MEDS ORDERED: FIORICET 50-301 EACH PO (23:54)
[2022-04-11 00:25] LABS: HEMATOCRIT 39.1 % (42.0-52.0); MEAN CELL VOLUME 97.5 fl (80.0-94.0); MEAN CORPUSCULAR HGB 31.4 pg (27.0-31.0); MEAN CORPUSCULAR HGB CONC 32.2 g/dl (33.0-37.0); MEAN PLATELET VOLUME 12.4 fl (9.6-12.3); PLATELET COUNT AUTOMATED 34 10*3/uL (130-400); RED BLOOD COUNT 4.01 10*6/uL (4.50-5.90); RED CELL DISTRI WIDTH 13.9 % (0-14.5); WHITE BLOOD COUNT 2.2 10*3/uL (4.8-10.8)
[2022-04-11 00:27] LABS: MANUAL DIFF REFLEX YES
[2022-04-11 00:43] LABS: ALKALINE PHOSPHATASE 79 U/L (46-116); BUN 8 mg/dl (9-23); CHLORIDE 107 mmol/L (98-107); CREATININE 0.85 mg/dL (0.70-1.30); LIPASE 63 U/L (12-53); POTASSIUM 4.2 mmol/L (3.4-5.1); SGPT/ALT 48 U/L (10-49); SODIUM 141 mmol/L (136-145)
[2022-04-11 00:48] LABS: BASOPHILS 1 % (0-1); PLATELET SUFFICIENCY LOW (NORMAL); TOTAL CELLS COUNTED 100 #CELLS
[2022-04-11 02:40] LABS: BILIRUBIN 1+ (Negative); BLOOD 2+ (Negative); CLARITY Turbid (Clear); COLOR Red (Yellow); GLUCOSE Negative (Negative); KETONE Negative (Negative); LEUKO ESTERASE 2+ (Negative); NITRITE Negative (Negative); SPECIFIC GRAVITY 1.025 (1.001-1.030); UROBILINOGEN 0.2 E.U./dl (0.0-1.0)
[2022-04-11] MEDS ORDERED: FLOMAX0.4 MG PO (02:41)
[2022-04-11] MEDS ORDERED: CIPRO500 MG PO (02:41)
[2022-04-11] MEDS ORDERED: TRAMADOL HCL50 MG PO ×2 (02:41→03:16)
[2022-04-11 02:58] LABS: RBC TNTC rbc/hpf (0-2)
== END 2022-04-11 03:11 | disposition home or self-care (01) ==
LOC: ED 23:29
PROVIDERS: Emergency Medicine
DX: N13.2 Hydronephrosis with renal and ureteral calculous obstruction (principal); Z79.899 Other long term (current) drug therapy; Z90.49 Acquired absence of other specified parts of digestive tract; Z90.89 Acquired absence of other organs

== ENCOUNTER 2022-04-15 10:50 | Emergency (ER) | payer OTHER ==
[~2022-04-15] VITALS: Ht 185.4 cm; Wt 136.1 kg
[~2022-04-15 10:50] MED LIST changes: +CIPRO500 MG PO; +FENOFIBRATE PO; +FLOMAX0.4 MG PO; +JANUMET XR 50-1 EACH PO; +TRAMADOL HCL50 MG PO; +VITAMIN D31250 MCG PO
[2022-04-15 12:05] LABS: HEMATOCRIT 35.5 % (42.0-52.0); MANUAL DIFF REFLEX YES; MEAN CELL VOLUME 95.9 fl (80.0-94.0); MEAN CORPUSCULAR HGB 30.8 pg (27.0-31.0); MEAN CORPUSCULAR HGB CONC 32.1 g/dl (33.0-37.0); MEAN PLATELET VOLUME 12.1 fl (9.6-12.3); PLATELET COUNT AUTOMATED 31 10*3/uL (130-400); RED CELL DISTRI WIDTH 13.5 % (0-14.5); WHITE BLOOD COUNT 2.5 10*3/uL (4.8-10.8)
[2022-04-15 12:18] LABS: ALKALINE PHOSPHATASE 69 U/L (46-116); BUN 15 mg/dl (9-23); CHLORIDE 102 mmol/L (98-107); CREATININE 1.19 mg/dL (0.70-1.30); POTASSIUM 3.9 mmol/L (3.4-5.1); SGPT/ALT 28 U/L (10-49); SODIUM 136 mmol/L (136-145); TOTAL PROTEIN 6.5 gm/dL (6.0-8.0)
[2022-04-15 12:28] LABS: BILIRUBIN 1+ (Negative); BLOOD Negative (Negative); CLARITY Clear (Clear); COLOR Dark Yellow (Yellow); GLUCOSE Negative (Negative); KETONE 1+ (Negative); LEUKO ESTERASE Negative (Negative); NITRITE Negative (Negative); PH 5.5 (4.5-8.0); SPECIFIC GRAVITY >= 1.030 (1.001-1.030)
[2022-04-15 12:34] LABS: OVALOCYTES FEW; PLATELET SUFFICIENCY LOW (NORMAL); POLYCHROMASIA SLIGHT; TOTAL CELLS COUNTED 100 #CELLS
[2022-04-15 12:45] LABS: BACTERIA 1+; EPITHELIAL CELLS 0-2; HYALINE CAST 0-2; MUCOUS 1+
[2022-04-15] MEDS ORDERED: TRAMADOL HCL50 MG PO (13:44)
== END 2022-04-15 14:17 | disposition home or self-care (01) ==
LOC: ED 10:50
PROVIDERS: Nurse Practitioner Family
DX: N20.0 Calculus of kidney (principal); Z79.899 Other long term (current) drug therapy; Z90.49 Acquired absence of other specified parts of digestive tract; Z90.89 Acquired absence of other organs

== ENCOUNTER → 2022-05-28 | Outpatient (CLI) | payer OTHER | END | disposition home or self-care (01) | LOC: US 00:49 | PROVIDERS: ATTEND Urology | DX: N20.0 Calculus of kidney (principal) ==

== ENCOUNTER 2022-10-09 17:23 | Inpatient (IN) | payer OTHER ==
[~2022-10-09] VITALS: Ht 185.4 cm; Wt 142.4 kg
[2022-10-09 17:44] VITALS: BP 106/58
[2022-10-09] MEDS ORDERED: JANUMET 50-1,01 EACH PO (17:47)
[2022-10-09 20:07] LABS: ALKALINE PHOSPHATASE 70 U/L (46-116); BUN 8 mg/dl (9-23); CHLORIDE 107 mmol/L (98-107); POTASSIUM 4.2 mmol/L (3.4-5.1); SGPT/ALT 26 U/L (10-49)
[2022-10-09 20:09] LABS: HEMATOCRIT 34.9 % (42.0-52.0); MANUAL DIFF REFLEX YES; MEAN CELL VOLUME 97.5 fl (80.0-94.0); MEAN CORPUSCULAR HGB CONC 31.8 g/dl (33.0-37.0); MEAN PLATELET VOLUME 11.8 fl (9.6-12.3); PLATELET COUNT AUTOMATED 39 10*3/uL (130-400); RED BLOOD COUNT 3.58 10*6/uL (4.50-5.90); RED CELL DISTRI WIDTH 14.6 % (0-14.5); WHITE BLOOD COUNT 3.2 10*3/uL (4.8-10.8)
[2022-10-09 20:29] LABS: BASOPHILS 1 % (0-1); TOTAL CELLS COUNTED 100 #CELLS
[2022-10-09 20:30] LABS: OVALOCYTES FEW; PLATELET SUFFICIENCY LOW (NORMAL); POLYCHROMASIA SLIGHT
[2022-10-09] MEDS ORDERED: TYLENOL EXTRA500 MG PO (21:15)
[2022-10-09 22:48] VITALS: BP 131/64
[2022-10-10 01:42] VITALS: BP 122/80
[2022-10-10 06:02] VITALS: BP 120/70
[2022-10-10 07:52] LABS: HEMATOCRIT 32.6 % (42.0-52.0); MEAN CELL VOLUME 98.2 fl (80.0-94.0); MEAN CORPUSCULAR HGB CONC 31.6 g/dl (33.0-37.0); PLATELET COUNT AUTOMATED 36 10*3/uL (130-400); RED BLOOD COUNT 3.32 10*6/uL (4.50-5.90); RED CELL DISTRI WIDTH 14.8 % (0-14.5); WHITE BLOOD COUNT 2.6 10*3/uL (4.8-10.8)
[2022-10-10 07:53] LABS: MANUAL DIFF REFLEX YES
[2022-10-10 08:01] LABS: INTERNATIONAL NORM RATIO 1.3 (2.0-3.5)
[2022-10-10 08:16] LABS: ALKALINE PHOSPHATASE 68 U/L (46-116); BUN 12 mg/dl (9-23); CHLORIDE 105 mmol/L (98-107); CHOLESTEROL 98 mg/dL (<200); FREE T4 0.83 ng/dl (0.89-1.76); LDL CHOLESTEROL 44 mg/dL (9-159); POTASSIUM 4.1 mmol/L (3.4-5.1); SGPT/ALT 23 U/L (10-49); THYROID STIM HORMONE (HS) 2.204 uIU/ml (0.550-4.780); TOTAL PROTEIN 6.9 gm/dL (6.0-8.0); TRIGLYCERIDES 86 mg/dl (<150)
[2022-10-10 08:20] LABS: POLYCHROMASIA SLIGHT; TOTAL CELLS COUNTED 100 #CELLS
[2022-10-10 08:21] LABS: OVALOCYTES FEW; PLATELET SUFFICIENCY LOW (NORMAL)
[2022-10-10 08:56] LABS: VITAMIN D, 25-HYDROXY 90.3 ng/mL (30-100)
[2022-10-10 16:09] VITALS: BP 110/40
[2022-10-10 20:30] VITALS: BP 149/59
[2022-10-10] MEDS ORDERED: LOTRISONE 0.05%45 GM T (22:44)
[2022-10-10] MEDS ORDERED: QUETIAPINE FUMA25 MG PO (22:44)
[2022-10-11] VITALS: BP 129/53
[2022-10-11 06:28] LABS: HEMATOCRIT 30.7 % (42.0-52.0); MEAN CELL VOLUME 97.8 fl (80.0-94.0); MEAN CORPUSCULAR HGB 30.9 pg (27.0-31.0); MEAN CORPUSCULAR HGB CONC 31.6 g/dl (33.0-37.0); MEAN PLATELET VOLUME 12.2 fl (9.6-12.3); PLATELET COUNT AUTOMATED 40 10*3/uL (130-400); RED BLOOD COUNT 3.14 10*6/uL (4.50-5.90); RED CELL DISTRI WIDTH 14.6 % (0-14.5); WHITE BLOOD COUNT 2.4 10*3/uL (4.8-10.8)
[2022-10-11 06:45] LABS: BUN 11 mg/dl (9-23); CHLORIDE 105 mmol/L (98-107)
[2022-10-11 06:48] LABS: MANUAL DIFF REFLEX YES
[2022-10-11 08:00] VITALS: BP 126/74
[2022-10-11 08:07] LABS: PLATELET SUFFICIENCY LOW (NORMAL); TOTAL CELLS COUNTED 100 #CELLS
[2022-10-11 08:08] LABS: BURR CELLS FEW; OVALOCYTES FEW; POLYCHROMASIA SLIGHT
[2022-10-11 12:00] VITALS: BP 118/78; BP 128/72
[2022-10-11 16:00] VITALS: BP 120/72
[2022-10-11 20:00] VITALS: BP 120/56
[2022-10-12] VITALS: BP 130/54
[2022-10-12 06:13] LABS: BUN 10 mg/dl (9-23); CHLORIDE 105 mmol/L (98-107); POTASSIUM 3.9 mmol/L (3.4-5.1)
[2022-10-12 06:19] LABS: HEMATOCRIT 30.7 % (42.0-52.0); MEAN CELL VOLUME 97.5 fl (80.0-94.0); MEAN CORPUSCULAR HGB 30.8 pg (27.0-31.0); MEAN CORPUSCULAR HGB CONC 31.6 g/dl (33.0-37.0); MEAN PLATELET VOLUME 12.6 fl (9.6-12.3); PLATELET COUNT AUTOMATED 39 10*3/uL (130-400); RED BLOOD COUNT 3.15 10*6/uL (4.50-5.90); RED CELL DISTRI WIDTH 14.3 % (0-14.5); WHITE BLOOD COUNT 2.2 10*3/uL (4.8-10.8)
[2022-10-12 06:22] LABS: MANUAL DIFF REFLEX YES
[2022-10-12 07:20] LABS: BURR CELLS FEW; OVALOCYTES FEW; PLATELET SUFFICIENCY LOW (NORMAL); POLYCHROMASIA SLIGHT; ROULEAUX SLIGHT; TOTAL CELLS COUNTED 100 #CELLS
[2022-10-12 08:00] VITALS: BP 132/52
[2022-10-12 12:00] VITALS: BP 147/77
[2022-10-12 16:00] VITALS: BP 142/64
[2022-10-12 20:00] VITALS: BP 119/54
[2022-10-13] VITALS: BP 128/48
[2022-10-13 06:20] LABS: HEMATOCRIT 29.2 % (42.0-52.0); MEAN CELL VOLUME 97.3 fl (80.0-94.0); MEAN CORPUSCULAR HGB CONC 31.8 g/dl (33.0-37.0); MEAN PLATELET VOLUME 12.6 fl (9.6-12.3); PLATELET COUNT AUTOMATED 41 10*3/uL (130-400); RED CELL DISTRI WIDTH 14.1 % (0-14.5); WHITE BLOOD COUNT 2.3 10*3/uL (4.8-10.8)
[2022-10-13 06:21] LABS: MANUAL DIFF REFLEX YES
[2022-10-13 06:27] LABS: ALKALINE PHOSPHATASE 65 U/L (46-116); BUN 10 mg/dl (9-23); CHLORIDE 107 mmol/L (98-107); POTASSIUM 3.9 mmol/L (3.4-5.1); SGPT/ALT 17 U/L (10-49); TOTAL PROTEIN 6.2 gm/dL (6.0-8.0)
[2022-10-13 07:05] LABS: OVALOCYTES FEW; PLATELET SUFFICIENCY LOW (NORMAL); POLYCHROMASIA SLIGHT; ROULEAUX SLIGHT; SCHISTOCYTES FEW; TOTAL CELLS COUNTED 100 #CELLS
[2022-10-13 08:00] VITALS: BP 133/71
[2022-10-13 12:00] VITALS: BP 141/69
[2022-10-13 16:00] VITALS: BP 141/72
[2022-10-13 20:00] VITALS: BP 146/57
[2022-10-14] VITALS: BP 127/56
[2022-10-14 05:26] LABS: BUN 10 mg/dl (9-23); CHLORIDE 108 mmol/L (98-107); POTASSIUM 3.9 mmol/L (3.4-5.1)
[2022-10-14 06:24] LABS: HEMATOCRIT 29.9 % (42.0-52.0); MEAN CELL VOLUME 96.8 fl (80.0-94.0); MEAN CORPUSCULAR HGB 30.4 pg (27.0-31.0); MEAN CORPUSCULAR HGB CONC 31.4 g/dl (33.0-37.0); MEAN PLATELET VOLUME 12.8 fl (9.6-12.3); PLATELET COUNT AUTOMATED 41 10*3/uL (130-400); RED BLOOD COUNT 3.09 10*6/uL (4.50-5.90); WHITE BLOOD COUNT 2.2 10*3/uL (4.8-10.8)
[2022-10-14 06:54] LABS: MANUAL DIFF REFLEX YES
[2022-10-14 07:47] VITALS: BP 112/42
[2022-10-14 07:57] LABS: PLATELET SUFFICIENCY LOW (NORMAL); TOTAL CELLS COUNTED 100 #CELLS
[2022-10-14 12:00] VITALS: BP 161/77
[2022-10-14 12:01] VITALS: BP 148/65
[2022-10-14 16:00] VITALS: BP 140/68
[2022-10-14 20:00] VITALS: BP 134/56
[2022-10-15] VITALS: BP 131/50
[2022-10-15 06:13] LABS: BUN 9 mg/dl (9-23); CHLORIDE 108 mmol/L (98-107)
[2022-10-15 06:18] LABS: BASO % 1.1 % (0.0-1.0); EOS # 0.2 10*3/uL (0.0-0.4); EOS % 6.3 % (1.0-4.0); HEMATOCRIT 31.5 % (42.0-52.0); LYMPH # 0.8 10*3/uL (1.3-4.4); LYMPH % 27.4 % (27.0-41.0); MEAN CORPUSCULAR HGB 30.5 pg (27.0-31.0); MEAN CORPUSCULAR HGB CONC 31.7 g/dl (33.0-37.0); MEAN PLATELET VOLUME 11.9 fl (9.6-12.3); MONO # 0.2 10*3/uL (0.1-1.0); MONO % 8.1 % (3.0-9.0); NEUT # 1.6 10*3/uL (2.3-7.9); NEUT % 56.7 % (47.0-73.0); PLATELET COUNT AUTOMATED 51 10*3/uL (130-400); RED BLOOD COUNT 3.28 10*6/uL (4.50-5.90); RED CELL DISTRI WIDTH 13.9 % (0-14.5); WHITE BLOOD COUNT 2.9 10*3/uL (4.8-10.8)
[2022-10-15 08:00] VITALS: BP 124/60
[2022-10-15 12:00] VITALS: BP 118/58
[2022-10-15 16:00] VITALS: BP 114/61
[2022-10-15 20:00] VITALS: BP 125/55
[2022-10-16] VITALS: BP 120/50
[2022-10-16 06:33] LABS: HEMATOCRIT 28.7 % (42.0-52.0); MEAN CELL VOLUME 96.3 fl (80.0-94.0); MEAN CORPUSCULAR HGB 30.9 pg (27.0-31.0); MEAN CORPUSCULAR HGB CONC 32.1 g/dl (33.0-37.0); MEAN PLATELET VOLUME 12.1 fl (9.6-12.3); PLATELET COUNT AUTOMATED 45 10*3/uL (130-400); RED BLOOD COUNT 2.98 10*6/uL (4.50-5.90); RED CELL DISTRI WIDTH 13.7 % (0-14.5)
[2022-10-16 06:36] LABS: MANUAL DIFF REFLEX YES
[2022-10-16 06:39] LABS: WHITE BLOOD COUNT 1.8 10*3/uL (4.8-10.8)
[2022-10-16 07:00] LABS: BUN 10 mg/dl (9-23); CHLORIDE 107 mmol/L (98-107); POTASSIUM 3.9 mmol/L (3.4-5.1)
[2022-10-16 07:17] LABS: PLATELET SUFFICIENCY LOW (NORMAL); POLYCHROMASIA SLIGHT; TOTAL CELLS COUNTED 100 #CELLS
[2022-10-16 07:18] LABS: OVALOCYTES FEW; ROULEAUX SLIGHT
[2022-10-16 08:00] VITALS: BP 120/55
[2022-10-16] MEDS ORDERED: VIBRA-TAB100 MG PO (10:55)
[2022-10-16 12:00] VITALS: BP 110/64
== END 2022-10-16 19:18 | disposition home or self-care (01) | DRG 872 ==
LOC: ED 17:23 → 4E 21:12 → EDHOLD 21:12 → 4E 10-10 19:57
PROVIDERS: Internal Medicine; Physician Assistant; Student in an Organized Health Care Education/Training Program; ADMIT Student in an Organized Health Care Education/Training Program; ATTEND Student in an Organized Health Care Education/Training Program
DX: A41.9 Sepsis, unspecified organism (principal); L03.116 Cellulitis of left lower limb; E44.0 Moderate protein-calorie malnutrition; D61.818 Other pancytopenia; Z68.41 Body mass index [BMI] 40.0-44.9, adult; I87.2 Venous insufficiency (chronic) (peripheral); E80.6 Other disorders of bilirubin metabolism; E66.9 Obesity, unspecified; S80.12XA Contusion of left lower leg, initial encounter; R73.9 Hyperglycemia, unspecified; D53.9 Nutritional anemia, unspecified; K21.9 Gastro-esophageal reflux disease without esophagitis; I10 Essential (primary) hypertension; Z90.49 Acquired absence of other specified parts of digestive tract; Z82.49 Family history of ischemic heart disease and other diseases of the circulatory system; Z82.3 Family history of stroke

== ENCOUNTER → 2022-10-25 | Outpatient (CLI) | payer OTHER ==
[~2022-10-25] MED LIST changes: +JANUMET 50-1,01 EACH PO; +LOTRISONE 0.05%45 GM T; +QUETIAPINE FUMA25 MG PO; +TYLENOL EXTRA500 MG PO; +VIBRA-TAB100 MG PO
== END | disposition home or self-care (01) ==
LOC: WOUNDCARE 01:11
PROVIDERS: ATTEND Nurse Practitioner Primary Care
DX: S81.802D Unspecified open wound, left lower leg, subsequent encounter (principal); L03.116 Cellulitis of left lower limb; L81.9 Disorder of pigmentation, unspecified; R22.43 Localized swelling, mass and lump, lower limb, bilateral; I10 Essential (primary) hypertension; E78.5 Hyperlipidemia, unspecified; K21.9 Gastro-esophageal reflux disease without esophagitis; Z90.49 Acquired absence of other specified parts of digestive tract; X58.XXXD Exposure to other specified factors, subsequent encounter

== ENCOUNTER → 2022-10-28 | Outpatient (CLI) | payer OTHER | END | disposition home or self-care (01) | LOC: US 11:30 | PROVIDERS: ATTEND Nurse Practitioner Primary Care | DX: S81.802A Unspecified open wound, left lower leg, initial encounter (principal); L81.9 Disorder of pigmentation, unspecified; R22.42 Localized swelling, mass and lump, left lower limb; M79.89 Other specified soft tissue disorders; R20.0 Anesthesia of skin; R22.43 Localized swelling, mass and lump, lower limb, bilateral; L03.116 Cellulitis of left lower limb; X58.XXXA Exposure to other specified factors, initial encounter; Y93.89 Activity, other specified; Y92.89 Other specified places as the place of occurrence of the external cause; Y99.8 Other external cause status ==

== ENCOUNTER → 2022-11-08 | Outpatient (CLI) | payer OTHER | END | disposition home or self-care (01) | LOC: WOUNDCARE 00:24 | PROVIDERS: ATTEND Nurse Practitioner Family | DX: L03.116 Cellulitis of left lower limb (principal); S81.802D Unspecified open wound, left lower leg, subsequent encounter; L81.9 Disorder of pigmentation, unspecified; R22.43 Localized swelling, mass and lump, lower limb, bilateral; K21.9 Gastro-esophageal reflux disease without esophagitis; I10 Essential (primary) hypertension; Z90.49 Acquired absence of other specified parts of digestive tract; X58.XXXD Exposure to other specified factors, subsequent encounter ==

== ENCOUNTER → 2022-11-22 | Outpatient (CLI) | payer OTHER | LOC: WOUNDCARE 00:51 | PROVIDERS: ATTEND Nurse Practitioner Family | DX: Z53.21 Procedure and treatment not carried out due to patient leaving prior to being seen by health care provider (principal) ==

== ENCOUNTER → 2022-11-26 | Outpatient (CLI) | payer OTHER | LOC: WOUNDCARE 01:45 | PROVIDERS: ATTEND Nurse Practitioner Family | DX: L03.116 Cellulitis of left lower limb (principal); S81.802D Unspecified open wound, left lower leg, subsequent encounter; L81.9 Disorder of pigmentation, unspecified; R22.43 Localized swelling, mass and lump, lower limb, bilateral; I10 Essential (primary) hypertension; K21.9 Gastro-esophageal reflux disease without esophagitis; Z90.49 Acquired absence of other specified parts of digestive tract; X58.XXXD Exposure to other specified factors, subsequent encounter ==

== ENCOUNTER → 2023-10-21 | Outpatient (CLI) | payer MEDICARE ==
[~2023-10-21] MED LIST changes: +AMMONIUM LACTA227 GM T; +LACTULOSE20 GM/30 M PO; +SPIRONOLACTONE100 MG PO; +VITAMIN D3125 MCG PO
== END | disposition home or self-care (01) ==
LOC: LAB 12:34
PROVIDERS: ATTEND Internal Medicine Gastroenterology
DX: B19.20 Unspecified viral hepatitis C without hepatic coma (principal)

== ENCOUNTER → 2023-11-10 | Outpatient (CLI) | payer MEDICARE, OTHER ==
[~2023-11-10] MED LIST changes: +DOXYCYCLINE MO100 MG PO; +FUROSEMIDE20 M1 PO
[2023-11-10 12:10] LABS: EOS # 0.2 10*3/uL (0.0-0.4); EOS % 6.4 % (1.0-4.0); HEMATOCRIT 36.9 % (42.0-52.0); LYMPH # 0.9 10*3/uL (1.3-4.4); LYMPH % 28.9 % (27.0-41.0); MEAN CELL VOLUME 92.3 fl (80.0-94.0); MEAN CORPUSCULAR HGB 29.3 pg (27.0-31.0); MEAN CORPUSCULAR HGB CONC 31.7 g/dl (33.0-37.0); MEAN PLATELET VOLUME 11.9 fl (9.6-12.3); MONO # 0.2 10*3/uL (0.1-1.0); NEUT # 1.7 10*3/uL (2.3-7.9); PLATELET COUNT AUTOMATED 60 10*3/uL (130-400); RED CELL DISTRI WIDTH 14.7 % (0-14.5)
[2023-11-10 12:38] LABS: ALKALINE PHOSPHATASE 95 U/L (46-116); BUN 11 mg/dl (9-23); CHLORIDE 106 mmol/L (98-107); POTASSIUM 4.3 mmol/L (3.4-5.1); SGPT/ALT 20 U/L (5-49); TOTAL PROTEIN 7.5 gm/dL (6.0-8.0)
== END | disposition home or self-care (01) ==
LOC: LAB 11:28
PROVIDERS: ATTEND Internal Medicine
DX: K74.60 Unspecified cirrhosis of liver (principal)

== ENCOUNTER → 2024-07-23 | Outpatient (CLI) | payer OTHER ==
[2024-07-23 10:56] LABS: MEAN CELL VOLUME 95.8 fl (80.0-94.0); MEAN CORPUSCULAR HGB 29.6 pg (27.0-31.0); MEAN CORPUSCULAR HGB CONC 30.9 g/dl (33.0-37.0); MEAN PLATELET VOLUME 11.3 fl (9.6-12.3); PLATELET COUNT AUTOMATED 38 10*3/uL (130-400); RED BLOOD COUNT 3.34 10*6/uL (4.50-5.90); RED CELL DISTRI WIDTH 14.5 % (0-14.5)
[2024-07-23 11:10] LABS: MANUAL DIFF REFLEX YES
[2024-07-23 11:22] LABS: ATYPICAL LYMPHS 1 % (0-0); BASOPHILS 2 % (0-1); TOTAL CELLS COUNTED 100 #CELLS
[2024-07-23 11:23] LABS: OVALOCYTES FEW; PLATELET SUFFICIENCY LOW (NORMAL); ROULEAUX SLIGHT
[2024-07-23 11:25] LABS: WHITE BLOOD COUNT 1.7 10*3/uL (4.8-10.8)
[2024-07-23 11:26] LABS: ALKALINE PHOSPHATASE 80 U/L (46-116); BUN 17 mg/dl (9-23); CHLORIDE 108 mmol/L (98-107); POTASSIUM 4.4 mmol/L (3.4-5.1); SGPT/ALT 18 U/L (5-49); TOTAL PROTEIN 6.9 gm/dL (6.0-8.0); VITAMIN D, 25-HYDROXY 51.2 ng/mL (30-100)
== END | disposition home or self-care (01) ==
LOC: LAB 10:18
PROVIDERS: ATTEND Internal Medicine
DX: I10 Essential (primary) hypertension (principal); E11.9 Type 2 diabetes mellitus without complications; K74.60 Unspecified cirrhosis of liver

== ENCOUNTER → 2024-09-23 | Outpatient (CLI) | payer OTHER ==
[2024-09-23 15:09] LABS: HEMATOCRIT 31.9 % (42.0-52.0); MEAN CELL VOLUME 94.1 fl (80.0-94.0); MEAN CORPUSCULAR HGB 29.2 pg (27.0-31.0); MEAN PLATELET VOLUME 10.2 fl (9.6-12.3); PLATELET COUNT AUTOMATED 39 10*3/uL (130-400); RED BLOOD COUNT 3.39 10*6/uL (4.50-5.90); RED CELL DISTRI WIDTH 14.7 % (0-14.5)
[2024-09-23 15:32] LABS: ALKALINE PHOSPHATASE 84 U/L (46-116); BUN 17 mg/dl (9-23); CHLORIDE 108 mmol/L (98-107); CHOLESTEROL 130 mg/dL (<200); LDL CHOLESTEROL 63 mg/dL (9-159); POTASSIUM 4.7 mmol/L (3.4-5.1); SGPT/ALT 19 U/L (5-49); TOTAL PROTEIN 6.9 gm/dL (6.0-8.0)
[2024-09-23 15:33] LABS: MANUAL DIFF REFLEX YES
[2024-09-23 15:35] LABS: VITAMIN D, 25-HYDROXY 36.7 ng/mL (30-100)
[2024-09-23 15:44] LABS: BASOPHILS 2 % (0-1); TOTAL CELLS COUNTED 100 #CELLS
[2024-09-23 15:45] LABS: OVALOCYTES FEW
[2024-09-23 15:49] LABS: PLATELET SUFFICIENCY LOW (NORMAL)
[2024-09-24 07:06] LABS: HBsAG SCREEN Negative (Negative); HCV Ab Non Reactive (Non Reactive); HEP B CORE Ab, IgM Negative (Negative)
== END | disposition home or self-care (01) ==
LOC: LAB 14:39
PROVIDERS: ATTEND Internal Medicine
DX: E11.9 Type 2 diabetes mellitus without complications (principal); K74.60 Unspecified cirrhosis of liver; E55.9 Vitamin D deficiency, unspecified; I10 Essential (primary) hypertension

== ENCOUNTER → 2024-12-09 | Outpatient (CLI) | payer OTHER | END | disposition home or self-care (01) | LOC: D 13:51 | PROVIDERS: ATTEND Internal Medicine | DX: E66.9 Obesity, unspecified (principal); E11.9 Type 2 diabetes mellitus without complications ==

== ENCOUNTER → 2025-01-05 | Outpatient (CLI) | payer OTHER ==
[2025-01-05 14:29] LABS: MEAN CELL VOLUME 89.8 fl (80.0-94.0); MEAN CORPUSCULAR HGB 28.0 pg (27.0-31.0); MEAN PLATELET VOLUME 10.9 fl (9.6-12.3); NUCLEATED RED BLOOD CELL 0.0 % (0.0-0.0); NUCLEATED RED BLOOD CELL 0.0 10*3/uL (0.0-0.0); PLATELET COUNT AUTOMATED 42 10*3/uL (130-400); RED CELL DISTRI WIDTH 14.3 % (0-14.5)
[2025-01-05 14:30] LABS: MANUAL DIFF REFLEX YES
[2025-01-05 14:51] LABS: BUN 13 mg/dl (9-23); SGPT/ALT 23 U/L (5-49)
[2025-01-05 15:11] LABS: BASOPHILS 1 % (0-1); PLATELET SUFFICIENCY LOW (NORMAL)
== END ==
LOC: LAB 13:57
PROVIDERS: ATTEND Internal Medicine
DX: K74.60 Unspecified cirrhosis of liver (principal)

== ENCOUNTER → 2025-01-12 | Outpatient (CLI) | payer OTHER ==
[2025-01-12 09:33] LABS: ACT PARTIAL THROMBO TIME 29.8 SECONDS (20.0-32.1)
== END | disposition home or self-care (01) ==
LOC: EDSTATUS 01-06 09:30 → LAB 02:03
PROVIDERS: ATTEND Internal Medicine
DX: R14.0 Abdominal distension (gaseous) (principal); Z53.8 Procedure and treatment not carried out for other reasons; Z79.01 Long term (current) use of anticoagulants